=== PATIENT | male | born 1950 | race African-American/Black ===

== ENCOUNTER 2017-01-20 09:50 | Outpatient (CLI) | payer BC ==
[2017-01-20] MEDS ORDERED: XYLOCAINE TOPICAL 4% TP ONE ×2 (11:25→12:49)
== END 2017-01-20 09:51 | disposition home or self-care (01) ==
LOC: WOUND 09:50
PROVIDERS: ATTEND Podiatrist
DX: I87.313 Chronic venous hypertension (idiopathic) with ulcer of bilateral lower extremity (principal); L97.812 Non-pressure chronic ulcer of other part of right lower leg with fat layer exposed; L97.822 Non-pressure chronic ulcer of other part of left lower leg with fat layer exposed; M79.672 Pain in left foot; M79.671 Pain in right foot; B35.1 Tinea unguium; Z87.891 Personal history of nicotine dependence
CPT/HCPCS: 11042; 11045; 11721; 87075; 87076; 87116; 87186; G0463

== ENCOUNTER 2017-01-27 10:20 | Outpatient (CLI) | payer BC ==
[2017-01-27] MEDS ORDERED: XYLOCAINE TOPICAL 4% TP ONE ×3 (10:52→12:00)
== END 2017-01-27 10:21 | disposition home or self-care (01) ==
LOC: WOUND 10:20
PROVIDERS: ATTEND Podiatrist
DX: I87.313 Chronic venous hypertension (idiopathic) with ulcer of bilateral lower extremity (principal); L97.811 Non-pressure chronic ulcer of other part of right lower leg limited to breakdown of skin; L97.821 Non-pressure chronic ulcer of other part of left lower leg limited to breakdown of skin; L84 Corns and callosities; Z87.891 Personal history of nicotine dependence
CPT/HCPCS: 99214; G0463

== ENCOUNTER 2017-02-03 10:15 | Outpatient (CLI) | payer BC | END 2017-02-03 10:16 | disposition home or self-care (01) | LOC: WOUND 10:15 | PROVIDERS: ATTEND Podiatrist | DX: I87.313 Chronic venous hypertension (idiopathic) with ulcer of bilateral lower extremity (principal); L97.821 Non-pressure chronic ulcer of other part of left lower leg limited to breakdown of skin; L97.811 Non-pressure chronic ulcer of other part of right lower leg limited to breakdown of skin; I89.0 Lymphedema, not elsewhere classified; L94.0 Localized scleroderma [morphea]; L84 Corns and callosities; Z87.891 Personal history of nicotine dependence | CPT/HCPCS: 99214; G0463 ==

== ENCOUNTER 2017-05-01 06:33 | Emergency (ER) | payer BC ==
[~2017-05-01 06:33] MED LIST: ADRENALIN ONE; D50W (25GM) IV ONE
--- NOTE | 2017-05-01 08:22 | Emergency Department Report ---
ED CPR HPI - General Chief Complaint: Cardiac Arrest/CPR Stated Complaint: CARDIAC ARREST Time Seen by Provider: 05/01/17 06:37 Source: EMS (verbal report received from EMS.ems notes not available at time of chart dictation), RN notes reviewed Mode of arrival: Stretcher Limitations: Other - History of Present Illness Initial Comments: This is a 66-year-old male, who was previously unknown to me. He is brought to the hospital by EMS as an out of hospital cardiac arrest. EMS reports the patient has been down at least 90 minutes with no pulse. EMS reports initial rhythm is pulseless electrical activity. Upon arrival, the patient is pulseless. His pupils are fixed and dilated. He is mottled. A bedside cardiac ultrasound demonstrates no cardiac activity or Cordata ventricular activity. Patient received standard ACLS interventions in the field, and in the emergency room. Unfortunately, return of spontaneous circulation could not be obtained, and resuscitation efforts were terminated. MD Complaint: found unresponsive -: unknown Place: NH/SNF Initial Findings in the Field: no pulse Treatments Prior to Arrival: intubation, chest compressions, epinephrine mgs # - Related Data Allergies Allergy/AdvReac Type Severity Reaction Status Date / Time No Known Allergies Allergy Unverified 01/20/17 12:49 ED Review of Systems ROS: Stated complaint: CARDIAC ARREST Other details as noted in HPI Comment: Unobtainable due to pts medical conditions ED Past Medical Hx - Past Medical History Previous Medical History?: Yes Hx Diabetes: Yes Hx Seizures: Yes - Surgical History Past Surgical History?: No ED Physical Exam - General Limitations: Other (intubated, GCS of 3) General appearance: other (patient is mottled, appears pale, numerous ecchymosis , appears chronically ill) - Head Head exam: Present: atraumatic - Eye Eye exam: Present: other (pupils are dilated and do not react to light) - ENT ENT exam: Present: other (endotracheal tube is noted in the oropharynx) - Neck Neck exam: Present: normal inspection - Respiratory Respiratory exam: Present: other (no breath sounds are appreciated, unless the patient receives opo-ihluc-tnao ventilation) - Cardiovascular Cardiovascular Exam: Present: other (no pulses are noted). Absent: systolic murmur, diastolic murmur, rubs, gallop - GI/Abdominal GI/Abdominal exam: Present: soft - Rectal Rectal exam: Present: deferred - exam: Present: normal inspection External exam: Present: other (Ramirez catheter in place) - Extremities Exam Extremities exam: Present: normal inspection - Back Exam Back exam: Present: normal inspection - Neurological Exam Neurological exam: Present: other (patient intubated, GCS of 3) - Psychiatric Psychiatric exam: Present: other (patient is nonverbal) - Skin Skin exam: Present: ecchymosis ED Medical Decision Making - Differential Diagnosis pneumonia, sepsis, ACS, pulmonary embolus Critical care attestation.: If time is entered above; I have spent that time in minutes in the direct care of this critically ill patient, excluding procedure time. ED Disposition Clinical Impression: Cardiac arrest Disposition: DC-20 Is pt being admited?: No Does the pt Need Aspirin: No Condition: Undetermined Referrals: PRIMARY CARE, [Primary Care Provider] - 3-5 Days
== END 2017-05-01 13:05 ==
LOC: ED 06:33
DX: I46.9 Cardiac arrest, cause unspecified (principal); E11.9 Type 2 diabetes mellitus without complications
CPT/HCPCS: 92950; 99285; J0171